=== PATIENT | female | born 1995 | race Caucasian/White ===

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

== ENCOUNTER 2017-05-15 21:11 | Emergency (ER) | payer OTHER, MEDICAID ==
--- NOTE | 2017-05-15 21:48 | Emergency Department Record ---
Anxiety - General Chief Complaint: Panic attack Stated Complaint: ANXIETY,SHAKES,HYPERVENTILATING Time Seen by Provider: 05/15/17 21:20 Source: Patient Mode of Arrival: Ambulatory Limitations: No limitations - History of Present Illness Initial Comments: 21 yo female presents to ED for evaluation of increased stress after missing a week of college last week. Patient reports that she missed class due to "the flu", emailed her professors, but she reports that they have not responded to her emails. Patient reports that she became stressed tonight after returning to college today resulting in a "panic attack". Patient reports that she has been having anxiety attacks weekly for some time but has not followed up with either her counselor or her PCP for further evaluation. Patient reports a history of anxiety and depression, was taking Prozac but stopped after 2 months. Patient denies SI/HI. Complaint: Anxiety Onset/Timin -: Hour(s) Place: Home Previous History of Same: Yes Severity: Moderate Quality: Constant Provoking factors: Emotional stress, Other Improves With: Nothing Worsens With: Thinking about event - Related Data Home Medications: Home Medications Medication Instructions Recorded Confirmed Last Taken No Home Med [NO HOME MEDS] 05/15/17 05/15/17 Unknown Allergies/Adverse Reactions: Allergies Allergy/AdvReac Type Severity Reaction Status Date / Time No Known Drug Allergies Allergy Unverified 12/14/15 09:37 Travel Screening - Travel/Exposure Within Last 30 Days Have you traveled within the last 30 days?: No - Travel Symptoms Symptom Screening: None Review of Systems Constitutional: Denies: Chills, Fever, Malaise, Night sweats Eyes: Denies: Eye discharge, Eye pain ENT: Denies: Congestion, Ear pain, Epistaxis Respiratory: Denies: Cough, Dyspnea Cardiovascular: Denies: Chest pain, Dyspnea on exertion Endocrine: Denies: Fatigue, Heat or cold intolerance Gastrointestinal: Denies: Abdominal pain, Nausea, Vomiting Genitourinary: Denies: Incontinence, Retention Musculoskeletal: Denies: Arthralgia, Back pain, Gout, Joint swelling Skin: Denies: Bruising, Change in color Neurological: Denies: Abnormal gait, Confusion, Headache, Seizure Psychiatric: Reports: Anxiety Hematological/Lymphatic: Denies: Anemia, Blood Clots Past Medical History - SOCIAL HISTORY Smoking Status: Never smoker Alcohol Use: Rare Drug Use: Rare Drug Use Detail:: Marijuana - RESPIRATORY Hx Respiratory Disorders: No - CARDIOVASCULAR Hx Cardio Disorders: No - NEURO Hx Neuro Disorders: No - GI Hx GI Disorders: No - Hx Genitourinary Disorders: No - ENDOCRINE Hx Endocrine Disorders: No - MUSCULOSKELETAL Hx Musculoskeletal Disorders: No - PSYCH Hx Psych Problems: Yes Hx Depression: Yes - HEMATOLOGY/ONCOLOGY Hx Hematology/Oncology Disorders: No Family Medical History Any Significant Family History?: Yes Hx Anxiety: Father, Mother *Anxiety Comment: Mom-bipolar Hx Depression: Father, Mother Physical Exam - General General Appearance: Alert, Oriented x3, Cooperative, No acute distress, Other ( flat affect, no evidence for anxiety reaction on examination.) Limitations: No limitations - Head Head exam: Atraumatic, Normocephalic, Normal inspection Head exam detail: negative: Abrasion, Contusion, Ibarra's sign, General tenderness, Hematoma, Laceration - Eye Eye exam: Normal appearance. negative: Conjunctival injection, Periorbital swelling, Periorbital tenderness, Scleral icterus - ENT Ear exam: negative: Auricular hematoma, Auricular trauma Nasal Exam: negative: Active bleeding, Discharge, Dried blood, Foreign body Mouth exam: negative: Drooling, Laceration, Tongue elevation - Neck Neck exam: Normal inspection. negative: Meningismus, Tenderness - Respiratory Respiratory exam: Normal lung sounds bilaterally. negative: Rales, Respiratory distress, Rhonchi, Stridor - Cardiovascular Cardiovascular Exam: Regular rate, Normal rhythm, Normal heart sounds - GI/Abdominal GI/Abdominal exam: Soft. negative: Rebound, Rigid, Tenderness - Rectal Rectal exam: Deferred - exam: Deferred - Extremities Extremities exam: Normal inspection. negative: Pedal edema, Tenderness - Back Back exam: Denies: CVA tenderness (R), CVA tenderness (L) - Neurological Neurological exam: Alert, Normal gait, Oriented X3 - Psychiatric Psychiatric exam: Flat affect - Skin Skin exam: Normal color. negative: Abrasion Type of lesion: negative: abrasion Course Vital Signs 05/15/17 21:18 Temperature 98.2 F Pulse Rate [ 97 H Pulse Ox Probe] Respiratory 28 H Rate Blood Pressure 109/64 [Left Arm] Pulse Ox 100 - Reevaluation(s) Reevaluation #1: 05/15/17 21:57 Patient was seen and examined, discussed treatment options including stress management and follow-up with her PCP for evaluation of her depression and anxiety symptoms including medication. Patient verbalizes understanding of all instructions. Reevaluation #2: 05/15/17 22:06 Patient reports that she is ready to go at this time. Reiterated the importance of follow-up for further evaluation of her anxiety and depression symptoms as well as OTC melatonin for her symptoms as needed. Mother reports that she is being "blown off". I reiterated that there is no short-term fix/ medication for her stress and anxiety symptoms, and that long-term medical management may be needed through a primary care provider or therapist. Patient and her mother eloped prior to receiving discharge instructions. Disposition Clinical Impression: Anxiety reaction Disposition: Against Medical Advice Condition: (2) Stable Instructions: Generalized Anxiety Disorder (ED) Additional Instructions: Return to ED if your symptoms worsen or if you have any concerns. Melatonin as directed. Follow-up with your family doctor in 3-5 days as directed. Forms: Patient Portal Access Time of Disposition: 22:06 Quality - Quality Measures Quality Measures: N/A - Blood Pressure Screening Does Patient Have Any of the Following: No Blood Pressure Classification: Normal BP Reading Systolic Measurement: 109 Diastolic Measurement: 64 Screening for High Blood Pressure: < Normal BP, F/U Not Required > [G8783]
== END 2017-05-15 22:12 | disposition left against medical advice (07) ==
LOC: ER 21:11
DX: F41.1 Generalized anxiety disorder (principal); F43.0 Acute stress reaction
CPT/HCPCS: 99282

== ENCOUNTER 2017-09-25 20:50 | Emergency (ER) | payer OTHER, MEDICAID ==
[2017-09-25] MEDS ORDERED: ONDANSETRON 4 MG ODT TABLET SL ONE (21:13)
[2017-09-25] MEDS ORDERED: IBUPROFEN 600 MG TABLET PO ONE (21:16)
[2017-09-25 21:43] LABS: URINE APPEARANCE CLEAR; URINE BILIRUBIN NEGATIVE (NEGATIVE); URINE BLOOD LARGE (NEGATIVE); URINE COLOR YELLOW; URINE GLUCOSE (UA) NEGATIVE (NEGATIVE); URINE KETONE NEGATIVE (NEGATIVE); URINE LEUKOCYTE ESTERASE NEGATIVE (NEGATIVE); URINE NITRITE NEGATIVE (NEGATIVE); URINE PROTEIN NEGATIVE (NEGATIVE); URINE UROBILINOGEN 0.2 E.U./dL (0.20 - 1.00)
[2017-09-25 21:44] LABS: HCG,QUALITATIVE URINE NEGATIVE (NEGATIVE); URINE BACTERIA NONE SEEN; URINE EPITHELIAL CELLS 0 - 2 (FEW); URINE WBC 0 - 2 (0-2/hpf)
--- NOTE | 2017-09-25 21:49 | Emergency Department Record ---
History of Present Illness - General Chief complaint: Pain Stated complaint: CRAMPS,DIARRHEA,NAUSEA Time Seen by Provider: 09/25/17 21:11 Source: Patient Mode of Arrival: Ambulatory Limitations: No limitations - History of Present Illness Initial comments: 22 yo female presents to ED for evaluation of pelvic cramping 5 days after having IUD placed with Dr. Garcia. Patient was told that she should expect 1- 2 days of cramping symptoms, was told to come to the ED if her symptoms persisted. Patient did not call her OB today regarding her symptoms however. Patient reports that she has been taking Tylenol for her symptoms without much improvement. Patient denies urinary symptoms, denies vaginal discharge symptoms. MD Complaint: Other (pelvic cramping) Onset/Timin -: Days(s) Location: Other History of Same: No Severity scale (1-10): 8 Quality: Other ("cramping") Consistency: Constant Improves with: Nothing Worsens with: Nothing Associated Symptoms: Denies other symptoms - Related Data Home Medications Medication Instructions Recorded Confirmed Last Taken Fluoxetine HCl [Prozac] 20 mg PO DAILY 09/25/17 09/25/17 Unknown Omeprazole [Prilosec] 20 mg PO DAILY 09/25/17 09/25/17 Unknown Previous Rx's Medication Instructions Recorded Ibuprofen 600 mg PO Q6H PRN #30 tablet 09/25/17 Allergies Allergy/AdvReac Type Severity Reaction Status Date / Time No Known Drug Allergies Allergy Unverified 12/14/15 09:37 Travel Screening - Travel/Exposure Within Last 30 Days Have you traveled within the last 30 days?: No Review of Systems Constitutional: Denies: Chills, Fever, Malaise, Night sweats Eyes: Denies: Eye discharge, Eye pain ENT: Denies: Congestion, Ear pain, Epistaxis Respiratory: Denies: Cough, Dyspnea Cardiovascular: Denies: Chest pain, Dyspnea on exertion Endocrine: Denies: Fatigue, Heat or cold intolerance Gastrointestinal: Reports: Abdominal pain. Denies: Nausea, Vomiting Genitourinary: Denies: Incontinence, Retention Musculoskeletal: Denies: Arthralgia, Back pain, Gout, Joint swelling Skin: Denies: Bruising, Change in color Neurological: Denies: Abnormal gait, Confusion, Headache, Seizure Psychiatric: Denies: Anxiety Hematological/Lymphatic: Denies: Anemia, Blood Clots Past Medical History - SOCIAL HISTORY Smoking Status: Never smoker Alcohol Use: None Drug Use: None - RESPIRATORY Hx Respiratory Disorders: No - CARDIOVASCULAR Hx Cardio Disorders: No - NEURO Hx Neuro Disorders: No - GI Hx GI Disorders: No - Hx Genitourinary Disorders: No - ENDOCRINE Hx Endocrine Disorders: No - MUSCULOSKELETAL Hx Musculoskeletal Disorders: No - PSYCH Hx Psych Problems: Yes Hx Depression: Yes - HEMATOLOGY/ONCOLOGY Hx Hematology/Oncology Disorders: No Family Medical History Any Significant Family History?: Yes Hx Anxiety: Father, Mother *Anxiety Comment: Mom-bipolar Hx Depression: Father, Mother Physical Exam - General General Appearance: Alert, Oriented x3, Cooperative, Mild distress Limitations: No limitations - Head Head exam: Atraumatic, Normocephalic, Normal inspection Head exam detail: negative: Abrasion, Contusion, Ibarra's sign, General tenderness, Hematoma, Laceration - Eye Eye exam: Normal appearance. negative: Conjunctival injection, Periorbital swelling, Periorbital tenderness, Scleral icterus - ENT Ear exam: negative: Auricular hematoma, Auricular trauma Nasal Exam: negative: Active bleeding, Discharge, Dried blood, Foreign body Mouth exam: negative: Drooling, Laceration, Muffled voice, Tongue elevation - Neck Neck exam: Normal inspection. negative: Meningismus, Tenderness - Respiratory Respiratory exam: Normal lung sounds bilaterally. negative: Rales, Respiratory distress, Rhonchi, Stridor - Cardiovascular Cardiovascular Exam: Regular rate, Normal rhythm, Normal heart sounds - GI/Abdominal GI/Abdominal exam: Soft, Tenderness, Other (Mild TTP pelvic region, no rebound, guarding, or peritoneal signs on exam). negative: Rebound, Rigid - Rectal Rectal exam: Deferred - exam: Other (IUD appears in satisfactory position, no bleeding present.). negative: cervical motion tenderness, Enlarged uterus, Vaginal discharge, Vaginal erythema - Extremities Extremities exam: Normal inspection. negative: Calf tenderness, Pedal edema, Tenderness - Back Back exam: Denies: CVA tenderness (R), CVA tenderness (L) - Neurological Neurological exam: Alert, Normal gait, Oriented X3 - Psychiatric Psychiatric exam: Normal affect, Normal mood - Skin Skin exam: Normal color. negative: Abrasion Type of lesion: negative: abrasion Course Vital Signs 09/25/17 20:58 Temperature 99.1 F Pulse Rate [ 75 Pulse Ox Probe] Respiratory 18 Rate Blood Pressure 125/69 [Left Arm] Pulse Ox 100 - Reevaluation(s) Reevaluation #1: 09/25/17 21:49 UA reviewed: 3-6 RBCs present Negative HCG No WBCs No bacteria Reevaluation #2: 09/25/17 21:55 Pelvic examination was performed, IUD appears to be in satisfactory position. Patient appears stable for discharge with instructions to take Ibuprofen as needed for cramping and to follow-up with Dr. Garcia in 3-5 days as directed for further evaluation. Medical Decision Making - Lab Data Lab Results 09/25/17 Range/Units 21:44 Urine Color Yellow Urine Appearance Clear Urine pH 6.0 (5.0-8.0) Ur Specific [place] >= 1.030 (1.002-1.030) Urine Protein Negative (NEGATIVE) Urine Glucose (UA) Negative (NEGATIVE) Urine Ketones Negative (NEGATIVE) Urine Blood Large H (NEGATIVE) Urine Nitrite Negative (NEGATIVE) Urine Bilirubin Negative (NEGATIVE) Urine Urobilinogen 0.2 (0.20 - 1.00) E.U./dL Ur Leukocyte Esterase Negative (NEGATIVE) Urine RBC 3 - 6 (NONE SEEN) Urine WBC 0 - 2 (0-2/hpf) Ur Epithelial Cells 0 - 2 (FEW) Urine Bacteria None seen Urine HCG, Qual Negative (NEGATIVE) Disposition Disposition: Discharge Clinical Impression: IUD complication Qualifiers: Device complication type: unspecified Encounter type: initial encounter Qualified Code(s): T83.9XXA - Unspecified complication of genitourinary prosthetic device, implant and graft, initial encounter Disposition: Home, Self-Care Condition: (2) Stable Instructions: Pelvic Pain in Women (ED) Additional Instructions: Return to ED if your symptoms worsen or if you have any concerns. Ibuprofen as directed. Follow-up with your Dr. Garcia in 3-5 days as directed. Prescriptions: Ibuprofen 600 mg PO Q6H PRN #30 tablet PRN Reason: Pain - Moderate (5-7) Forms: Patient Portal Access Time of Disposition: 21:57 Quality - Quality Measures Quality Measures: N/A - Blood Pressure Screening Does Patient Have Any of the Following: No Blood Pressure Classification: Pre-Hypertensive BP Reading Systolic Measurement: 125 Diastolic Measurement: 69 Screening for High Blood Pressure: < Pre-Hypertensive BP, F/U Documented > [ G8950] Pre-Hypertensive Follow-up Interventions: Referral to alternative/primary care provider.
== END 2017-09-25 22:03 | disposition home or self-care (01) ==
LOC: ER 20:50
DX: T83.84XA Pain due to genitourinary prosthetic devices, implants and grafts, initial encounter (principal); R10.2 Pelvic and perineal pain; Y76.2 Prosthetic and other implants, materials and accessory obstetric and gynecological devices associated with adverse incidents
CPT/HCPCS: 81001; 81025; 99284

== ENCOUNTER 2017-11-04 21:14 | Emergency (ER) | payer OTHER, MEDICAID ==
[2017-11-04 21:49] LABS: URINE APPEARANCE CLEAR; URINE BILIRUBIN NEGATIVE (NEGATIVE); URINE BLOOD MODERATE (NEGATIVE); URINE COLOR YELLOW; URINE GLUCOSE (UA) NEGATIVE (NEGATIVE); URINE KETONE NEGATIVE (NEGATIVE); URINE LEUKOCYTE ESTERASE NEGATIVE (NEGATIVE); URINE NITRITE NEGATIVE (NEGATIVE); URINE PROTEIN NEGATIVE (NEGATIVE); URINE UROBILINOGEN 0.2 E.U./dL (0.20 - 1.00)
[2017-11-04 22:01] LABS: HCG,QUALITATIVE URINE NEGATIVE (NEGATIVE); URINE BACTERIA FEW; URINE EPITHELIAL CELLS 0 - 2 (FEW); URINE WBC NONE SEEN (0-2/hpf)
[2017-11-04 22:04] LABS: BASO % 0.3 % (0-6); EOS % 2.4 % (0-6); GRAN % 62.2 % (47-80); HEMATOCRIT 40.2 % (35.0-47.0); HEMOGLOBIN 12.8 gm/dl (11.6-16.0); MEAN CELL VOLUME 90.1 fl (81-97); MEAN CORPUSCULAR HEMOGLOBIN 28.7 pg (27-33); MEAN CORPUSCULAR HGB CONC 31.8 g/dl (32-36); MEAN PLATELET VOLUME 9.8 fl (7.4-10.4); MONO % 7.1 % (0-9); PLATELET COUNT 331 K/uL (130-400); RED BLOOD COUNT 4.46 M/uL (3.80-5.40); RED CELL DISTRIBUTION WIDTH 13.9 % (11.5-14.5); WHITE BLOOD COUNT W/O DIFF 9.4 K/uL (4.2-12.2)
[2017-11-04 22:12] LABS: BLOOD UREA NITROGEN 13 mg/dL (6-20); CREATININE 0.8 mg/dL (0.5-0.9); EST GLOMERULAR FILTRATION RATE > 60 mL/min
[2017-11-04 22:13] LABS: TOTAL PROTEIN 6.7 g/dL (6.6-8.7)
[2017-11-04 22:15] LABS: GLUCOSE,RANDOM 94 mg/dL (74-109)
[2017-11-04 22:17] LABS: ALB/GLOB RATIO 1.5 (1.1-1.8); ALT/SGPT 35 U/L (<33); AST/SGOT 22 U/L (10.0-35.0)
[2017-11-04 22:18] LABS: ALKALINE PHOSPHATASE 97 U/L (35-104); LIPASE 28 U/L (13-60)
--- NOTE | 2017-11-04 22:20 | Emergency Department Record ---
History of Present Illness - General Chief Complaint: Abdominal Pain Stated Complaint: ABD PAIN, RT SIDE Time Seen by Provider: 11/04/17 21:52 Source: Patient Mode of Arrival: Ambulatory Limitations: No limitations - History of Present Illness Initial Comments: pt has ruq and rlq pain for 2hrs. it is cramp like. she had a normal bm an hour ago.non/v. she had surgery on her l wrist on 10/11 and has been taking norco Complaint: Abdominal pain Onset/Timin -: Hour(s) Location: RLQ Radiation: RUQ Migration to: RUQ Severity: Moderate Severity scale (1-10): 7 Quality: Sharp, Stabbing Consistency: Constant Improves With: Other Worsens With: Nothing Context: Other Associated Symptoms: Nausea - Related Data LMP (females 10-50): Unknown Patient : No (mirena iud) Home Medications Medication Instructions Recorded Confirmed Last Taken Hydrocodone/Acetaminophen [[place] 1 each PO DAILY 11/04/17 11/04/17 11/03/17 10-325 Tablet] Previous Rx's Medication Instructions Recorded Ibuprofen 600 mg PO Q6H PRN #30 tablet 09/25/17 Allergies Allergy/AdvReac Type Severity Reaction Status Date / Time No Known Drug Allergies Allergy Unverified 12/14/15 09:37 Travel Screening - Travel/Exposure Within Last 30 Days Have you traveled within the last 30 days?: No - Travel Symptoms Symptom Screening: None Review of Systems Reviewed: No additional complaints except as noted below Constitutional: Reports: As per HPI. Denies: Chills, Fever, Malaise, Night sweats, Weakness, Weight change Eyes: Reports: As per HPI. Denies: Eye discharge, Eye pain, Photophobia, Vision change ENT: Reports: As per HPI. Denies: Congestion, Dental pain, Ear pain, Epistaxis , Hearing loss, Throat pain Respiratory: Reports: As per HPI. Denies: Cough, Dyspnea, Hemoptysis, Stridor, Wheezes Cardiovascular: Reports: As per HPI. Denies: Arrhythmia, Chest pain, Dyspnea on exertion, Edema, Murmurs, Orthopnea, Palpitations, Paroxysmal nocturnal dyspnea, Rheumatic Fever, Syncope Endocrine: Reports: As per HPI. Denies: Fatigue, Heat or cold intolerance, Polydipsia, Polyuria Gastrointestinal: Reports: As per HPI, Abdominal pain. Denies: Constipation, Diarrhea, Hematemesis, Hematochezia, Melena, Nausea, Vomiting Genitourinary: Reports: As per HPI. Denies: Abnormal menses, Discharge, Dyspareunia, Dysuria, Frequency, Hematuria, Incontinence, Retention, Urgency Musculoskeletal: Reports: As per HPI. Denies: Arthralgia, Back pain, Gout, Joint swelling, Myalgia, Neck pain Skin: Reports: As per HPI. Denies: Bruising, Change in color, Change in hair/ nails, Lesions, Pruritus, Rash Neurological: Reports: As per HPI. Denies: Abnormal gait, Confusion, Headache, Numbness, Paresthesias, Seizure, Tingling, Tremors, Vertigo, Weakness Psychiatric: Reports: As per HPI. Denies: Anxiety, Auditory hallucinations, Depression, Homicidal thoughts, Suicidal thoughts, Visual hallucinations Hematological/Lymphatic: Reports: As per HPI. Denies: Anemia, Blood Clots, Easy bleeding, Easy bruising, Swollen glands Past Medical History - SOCIAL HISTORY Smoking Status: Current some day smoker Alcohol Use: Occasional Drug Use: Rare Drug Use Detail:: Marijuana - RESPIRATORY Hx Respiratory Disorders: No - CARDIOVASCULAR Hx Cardio Disorders: No - NEURO Hx Neuro Disorders: No - GI Hx GI Disorders: No - Hx Genitourinary Disorders: No - ENDOCRINE Hx Endocrine Disorders: No - MUSCULOSKELETAL Hx Musculoskeletal Disorders: No - PSYCH Hx Psych Problems: Yes Hx Anxiety: Yes Hx Depression: Yes - HEMATOLOGY/ONCOLOGY Hx Hematology/Oncology Disorders: No Family Medical History Any Significant Family History?: Yes Hx Anxiety: Father, Mother *Anxiety Comment: Mom-bipolar Hx Depression: Father, Mother Physical Exam - General General Appearance: Alert, Oriented x3, Cooperative, Mild distress - Head Head exam: Normal inspection - Eye Eye exam: Normal appearance, PERRL, EOMI Pupils: Normal accommodation - ENT ENT exam: Normal exam, Mucous membranes moist, Normal external ear exam, Normal orophraynx Ear exam: Normal external inspection. negative: External canal tenderness Nasal Exam: Normal inspection. negative: Discharge, Sinus tenderness Mouth exam: Normal external inspection, Tongue normal Teeth exam: Normal inspection. negative: Dental caries Throat exam: Normal inspection. negative: Tonsillar erythema, Tonsillar exudate - Neck Neck exam: Normal inspection, Full ROM. negative: Tenderness - Respiratory Respiratory exam: Normal lung sounds bilaterally. negative: Respiratory distress - Cardiovascular Cardiovascular Exam: Regular rate, Normal rhythm, Normal heart sounds - GI/Abdominal GI/Abdominal exam: Soft, Normal bowel sounds, Tenderness - Rectal Rectal exam: Deferred - exam: Deferred - Extremities Extremities exam: Normal inspection, Full ROM, Normal capillary refill. negative: Tenderness - Back Back exam: Reports: Normal inspection, Full ROM. Denies: Muscle spasm, Rash noted, Tenderness - Neurological Neurological exam: Alert, Normal gait, Oriented X3, Reflexes normal - Psychiatric Psychiatric exam: Normal affect, Normal mood - Skin Skin exam: Dry, Intact, Normal color, Warm Course Vital Signs 11/04/17 21:22 Temperature 98.7 F Pulse Rate [ 76 Pulse Ox Probe] Respiratory 16 Rate Blood Pressure 121/66 [Right Arm] Pulse Ox 99 Medical Decision Making - Lab Data Result diagrams: 11/04/17 21:45 11/04/17 21:45 Lab Results 11/04/17 11/04/17 Range/Units 21:30 21:45 WBC 9.4 (4.2-12.2) K/uL RBC 4.46 (3.80-5.40) M/uL Hgb 12.8 (11.6-16.0) gm/dl Hct 40.2 (35.0-47.0) % MCV 90.1 (81-97) fl MCH 28.7 (27-33) pg MCHC 31.8 L (32-36) g/dl RDW 13.9 (11.5-14.5) % Plt Count 331 (130-400) K/uL MPV 9.8 (7.4-10.4) fl Gran % 62.2 (47-80) % Lymphocytes % 28.0 (16-45) % Monocytes % 7.1 (0-9) % Eosinophils % 2.4 (0-6) % Basophils % 0.3 (0-6) % Urine Color Yellow Urine Appearance Clear Urine pH 6.5 (5.0-8.0) Ur Specific [place] 1.020 (1.002-1.030) Urine Protein Negative (NEGATIVE) Urine Glucose (UA) Negative (NEGATIVE) Urine Ketones Negative (NEGATIVE) Urine Blood Moderate (NEGATIVE) Urine Nitrite Negative (NEGATIVE) Urine Bilirubin Negative (NEGATIVE) Urine Urobilinogen 0.2 (0.20 - 1.00) E.U./dL Ur Leukocyte Esterase Negative (NEGATIVE) Urine RBC 10 - 15 (NONE SEEN) Urine WBC None seen (0-2/hpf) Ur Epithelial Cells 0 - 2 (FEW) Urine Bacteria Few Urine HCG, Qual Negative (NEGATIVE) Disposition Disposition: Discharge Clinical Impression: Abdominal pain Qualifiers: Abdominal location: right lower quadrant Qualified Code(s): R10.31 - Right lower quadrant pain Ovarian cyst Qualifiers: Laterality: right Qualified Code(s): N83.201 - Unspecified ovarian cyst, right side Cholelithiasis Qualifiers: Cholelithiasis location: gallbladder Cholecystitis presence: without cholecystitis Biliary obstruction: without biliary obstruction Qualified Code(s) : K80.20 - Calculus of gallbladder without cholecystitis without obstruction Hematuria Qualifiers: Hematuria type: asymptomatic microscopic Qualified Code(s): R31.21 - Asymptomatic microscopic hematuria Disposition: Home, Self-Care Condition: (1) Good Instructions: Gallstones (ED), Biliary Colic (ED), Ovarian Cyst (ED), Hematuria (ED) Additional Instructions: follow up with family doctor. return sooner if worse. have urine rechecked in a week Forms: Patient Portal Access Quality - Quality Measures Quality Measures: N/A - Blood Pressure Screening Does Patient Have Any of the Following: No Blood Pressure Classification: Normal BP Reading Systolic Measurement: 109 Diastolic Measurement: 50 Screening for High Blood Pressure: < Normal BP, F/U Not Required > [G8783]
[2017-11-04] MEDS ORDERED: KETOROLAC 30 MG/ML VIAL IVP ONE (23:12)
--- NOTE | 2017-11-05 12:59 | CT SCAN REPORT ---
EXAM: CT SCAN ABDOMEN/PELVIS WO CONTRAST HISTORY: RIGHT ABDOMINAL PAIN FOR 3-4 HOURS. TECHNIQUE: Helical CT examination of the abdomen and pelvis is performed without oral or intravenous contrast administration. Lack of oral and IV contrast utilization limits evaluation of the bowel and solid viscera, respectively. COMPARISON: Two views of the abdomen dated 06/27/2013. No prior CT examination available for comparison. FINDINGS: The lung bases are clear with the exception of a tiny subpleural calcified granuloma within the posterior left lung base, as seen on series 3, image #20. No pleural or pericardial effusion. The heart is not enlarged. The liver, spleen, pancreas, and adrenal glands are normal in appearance. The gallbladder is contracted. There is a possible tiny calcified gallstone. No gross gallbladder wall thickening or pericholecystic fluid. No biliary ductal dilatation. No intraabdominal nor retroperitoneal lymphadenopathy. The vasculature is normal in appearance. The kidneys are normal in size, position, and are smoothly marginated. No nephrolithiasis nor renal mass. The renal collecting systems are not dilated. No suspicious calcification is noted along the course of either ureter. No focal urinary bladder wall abnormality is seen. There are, however, a couple tiny collections of gas questioned in the nondependent urinary lumen. Has there been recent catheterization? An intrauterine contraceptive device is in place appearing satisfactory in position. The ovaries are not grossly enlarged. There are likely follicles within each ovary, with the largest on the right measuring up to 2 cm. No pelvic adenopathy nor free pelvic fluid. No gross bowel dilatation nor bowel wall thickening. The appendix is visualized and normal in appearance. There is a tiny fat-filled umbilical hernia appearing uncomplicated. No other ventral wall hernia. No lytic or blastic bone lesion. IMPRESSION: 1. NO NEPHROLITHIASIS NOR OBSTRUCTIVE UROPATHY. 2. BILATERAL OVARIAN FOLLICLES SUGGESTED, WITH THE LARGEST ON THE RIGHT MEASURING 2 CM IN DIAMETER. 3. NORMAL APPENDIX. 4. POSSIBLE TINY CALCIFIED GALLSTONE WITHOUT GALLBLADDER WALL THICKENING OR PERICHOLECYSTIC FLUID. 5. TINY COLLECTIONS OF GAS SUGGESTED IN THE NONDEPENDENT URINARY BLADDER LUMEN. HAS THERE BEEN RECENT CATHETERIZATION? THE URINARY BLADDER WALL DOES NOT APPEAR THICKENED. JOB NUMBER: [id number] MTDD
== END 2017-11-04 23:52 | disposition home or self-care (01) ==
LOC: ER 21:14
DX: K80.20 Calculus of gallbladder without cholecystitis without obstruction (principal); N83.201 Unspecified ovarian cyst, right side; R11.0 Nausea; R31.21 Asymptomatic microscopic hematuria; F17.210 Nicotine dependence, cigarettes, uncomplicated; Z98.890 Other specified postprocedural states
CPT/HCPCS: 99284 ×2; 96374; 83690; 85025; 80053; 81001; 81025; 74176; J1885

== ENCOUNTER 2018-08-08 17:00 | Emergency (ER) | payer OTHER, MEDICAID ==
--- NOTE | 2018-08-08 17:21 | Emergency Department Record ---
History of Present Illness - General Chief Complaint: Abdominal Pain Stated Complaint: ABDOMINAL PAIN Time Seen by Provider: 08/08/18 17:03 Source: Patient Mode of Arrival: Ambulatory Limitations: No limitations - History of Present Illness Initial Comments: The patient is here due to a 4 day hx of crampy diffuse AP with loose watery stools. She has had some nausea, but no vomiting, fever, or blood in the stool. She also denies any vaginal discharge, bleeding or pelvic cramping. The patient denies any Abx use and has had no recent travel. The patient has had no abdominal surgeries. MD Complaint: Abdominal pain Onset/Timin -: Days(s) Location: Diffuse Severity: Moderate Severity scale (1-10): 7 Quality: Cramping, Stabbing Consistency: Intermittent Improves With: Nothing Worsens With: Nothing Associated Symptoms: Diarrhea, Nausea - Related Data Patient : No Home Medications Medication Instructions Recorded Confirmed Last Taken Omeprazole [Prilosec] 20 mg PO DAILY 08/08/18 08/08/18 08/08/18 Previous Rx's Medication Instructions Recorded Ondansetron [Zofran Odt] 4 mg SL .Q4-6H PRN #12 tab.rapdis 08/08/18 Allergies Allergy/AdvReac Type Severity Reaction Status Date / Time No Known Drug Allergies Allergy Verified 08/08/18 18:32 Travel Screening - Travel/Exposure Within Last 30 Days Have you traveled within the last 30 days?: No - Travel/Exposure Within Last Year Have you traveled outside the [place] in the last year?: No - Additonal Travel Details Have you been exposed to anyone with a communicable illness?: No - Travel Symptoms Symptom Screening: None Review of Systems Constitutional: Denies: Chills, Fever Eyes: Denies: Eye discharge ENT: Denies: Congestion Respiratory: Denies: Cough, Dyspnea Past Medical History - SOCIAL HISTORY Smoking Status: Never smoker Alcohol Use: Occasional Drug Use: None - RESPIRATORY Hx Respiratory Disorders: No - CARDIOVASCULAR Hx Cardio Disorders: No - NEURO Hx Neuro Disorders: No - GI Hx GI Disorders: No - Hx Genitourinary Disorders: No - ENDOCRINE Hx Endocrine Disorders: No - MUSCULOSKELETAL Hx Musculoskeletal Disorders: No - PSYCH Hx Psych Problems: Yes Hx Anxiety: Yes Hx Depression: Yes - HEMATOLOGY/ONCOLOGY Hx Hematology/Oncology Disorders: No Family Medical History Any Significant Family History?: Yes Hx Anxiety: Father, Mother *Anxiety Comment: Mom-bipolar Hx Depression: Father, Mother Physical Exam - General General Appearance: Alert, Oriented x3, Cooperative, No acute distress - Head Head exam: Atraumatic, Normocephalic, Normal inspection - Eye Eye exam: Normal appearance, PERRL, EOMI - ENT Throat exam: Normal inspection. negative: Tonsillar erythema, Tonsillar exudate - Neck Neck exam: Normal inspection, Full ROM. negative: Tenderness - Respiratory Respiratory exam: Normal lung sounds bilaterally. negative: Respiratory distress - Cardiovascular Cardiovascular Exam: Regular rate, Normal rhythm, Normal heart sounds - GI/Abdominal GI/Abdominal exam: Soft, Normal bowel sounds, Tenderness (There is diffuse tenderness in all 4 quads but the abdomen is soft.). negative: Distended, Rebound, Rigid - Extremities Extremities exam: Normal inspection, Full ROM, Normal capillary refill. negative: Tenderness Course Vital Signs 08/08/18 17:08 Temperature 98.9 F Pulse Rate 90 Respiratory 20 Rate Blood Pressure 129/66 Pulse Ox 98 - Reevaluation(s) Reevaluation #1: The patient is doing a lot better at this time. Her crampy pain has resolved and she is resting comfortably with no nausea. I did discuss the normal lab work and the small amount of blood in the urine with the patient. She states she normally has some blood in the urine and that is chronic. On exam her abdomen is very soft and nontender in all 4 quads. The patient will be off work and drink fluids tonight and return to the ER in the AM for recheck. She has had no vomiting or diarrhea here in the ER. 08/08/18 18:15 Medical Decision Making - Data Complexity MDM Data: Labs Ordered and/or Reviewed - Lab Data Result diagrams: 08/08/18 17:40 08/08/18 17:40 Disposition Disposition: Discharge Clinical Impression: Diarrhea Qualifiers: Diarrhea type: unspecified type Qualified Code(s): R19.7 - Diarrhea, unspecified Disposition: Home, Self-Care Condition: (2) Stable Instructions: Acute Diarrhea (ED) Additional Instructions: Please drink plenty of fluids and slowly advance your diet tonight. Use the Zofran for nausea. Please return to the ER at 8am for recheck tomorrow. Return sooner for any return of the pain, fever, or vomiting. Prescriptions: Ondansetron [Zofran Odt] 4 mg SL .Q4-6H PRN #12 tab.rapdis PRN Reason: Nausea Forms: Patient Portal Access Time of Disposition: 18:18 Quality - Quality Measures Quality Measures: N/A - Blood Pressure Screening View Details: Yes Does Patient Have Any of the Following: No Blood Pressure Classification: Pre-Hypertensive BP Reading Systolic Measurement: 128 Diastolic Measurement: 71 Screening for High Blood Pressure: < Pre-Hypertensive BP, F/U Documented > [ G8950] Pre-Hypertensive Follow-up Interventions: Referral to alternative/primary care provider.
[2018-08-08] MEDS ORDERED: ONDANSETRON HCL IV 4 MG/2 ML VIAL IV ONE (17:23)
[2018-08-08] MEDS ORDERED: 0.9 % SODIUM CHLORIDE 1,000 ML BAG IV ONE (17:23)
[2018-08-08 17:50] LABS: BASO % 0.6 % (0-6); EOS % 1.1 % (0-6); GRAN % 77.2 % (47-80); HEMATOCRIT 42.4 % (35.0-47.0); HEMOGLOBIN 13.9 gm/dl (11.6-16.0); LYMPH % 15.3 % (16-45); MEAN CELL VOLUME 89.8 fl (81-97); MEAN CORPUSCULAR HEMOGLOBIN 29.4 pg (27-33); MEAN CORPUSCULAR HGB CONC 32.8 g/dl (32-36); MEAN PLATELET VOLUME 9.6 fl (7.4-10.4); MONO % 5.8 % (0-9); PLATELET COUNT 261 K/uL (130-400); RED BLOOD COUNT 4.72 M/uL (3.80-5.40); RED CELL DISTRIBUTION WIDTH 12.9 % (11.5-14.5); URINE APPEARANCE CLEAR; URINE BILIRUBIN NEGATIVE (NEGATIVE); URINE BLOOD MODERATE (NEGATIVE); URINE COLOR YELLOW; URINE GLUCOSE (UA) NEGATIVE (NEGATIVE); URINE KETONE NEGATIVE (NEGATIVE); URINE LEUKOCYTE ESTERASE NEGATIVE (NEGATIVE); URINE NITRITE NEGATIVE (NEGATIVE); URINE PROTEIN NEGATIVE (NEGATIVE); URINE UROBILINOGEN 0.2 E.U./dL (0.20 - 1.00); WHITE BLOOD COUNT W/O DIFF 5.3 K/uL (4.2-12.2)
[2018-08-08 18:00] LABS: BLOOD UREA NITROGEN 8 mg/dL (6-20); CREATININE 0.7 mg/dL (0.5-0.9); EST GLOMERULAR FILTRATION RATE > 60 mL/min; LIPASE 17 U/L (13-60); TOTAL PROTEIN 6.9 g/dL (6.6-8.7); URINE BACTERIA FEW; URINE RBC 16 - 25 (NONE SEEN); URINE SQUAMOUS EPITHELIAL CELL 0 - 2 /hpf; URINE WBC 0 - 2 (0-2/hpf)
[2018-08-08 18:02] LABS: GLUCOSE,RANDOM 133 mg/dL (74-109)
[2018-08-08] MEDS ORDERED: MAGNESIUM HYDROXIDE/AL HYDROX 30 ML, LIDOCAINE VISC 2% 15ML 15 ML PO ONE ×2 (18:02)
[2018-08-08 18:05] LABS: ALKALINE PHOSPHATASE 100 U/L (35-104); ALT/SGPT 18 U/L (<33); AST/SGOT 14 U/L (10.0-35.0); BILIRUBIN,DIRECT < 0.2 mg/dL (0-0.3)
[2018-08-08] MEDS ORDERED: POTASSIUM CHLORIDE 20 MEQ TABLET PO ONE (18:07)
== END 2018-08-08 19:05 | disposition home or self-care (01) ==
LOC: ER 17:00
DX: R19.7 Diarrhea, unspecified (principal); R11.0 Nausea; R31.29 Other microscopic hematuria; R10.84 Generalized abdominal pain
CPT/HCPCS: 99284 ×2; 96374; 96361; 83690; 85025; 80076; 80048; 81001; 84703; J2405; J7030

== ENCOUNTER 2018-08-09 07:30 | Emergency (ER) | payer OTHER, MEDICAID ==
--- NOTE | 2018-08-09 07:58 | Emergency Department Record ---
History of Present Illness - General Chief Complaint: Recheck - Other Stated Complaint: RECHECK Time Seen by Provider: 08/09/18 07:49 Source: Patient Mode of arrival: Ambulatory Limitations: No limitations - History of Present Illness Initial Comments: The patient is here for recheck due to 5 days of diffuse crampy AP with loose watery stools. She was here yesterday for the same issue and had normal lab work and did receive a liter of IVF and was discharged on Zofran. She states she is still having the crampy pain and loose stools but denies any vomiting or fever. The patient has had no abdominal surgeries. Complaint: Other Onset/Timin -: Days(s) Initial Visit For: Other Returns Today for: Other Symptoms Since Prior Visit: No new symptoms Associated Symptoms: Abdominal pain - Related Data Previous Rx's Medication Instructions Recorded Ondansetron [Zofran Odt] 4 mg SL .Q4-6H PRN #12 tab.rapdis 08/08/18 Allergies Allergy/AdvReac Type Severity Reaction Status Date / Time No Known Drug Allergies Allergy Verified 08/09/18 07:36 Travel Screening - Travel/Exposure Within Last 30 Days Have you traveled within the last 30 days?: No - Travel/Exposure Within Last Year Have you traveled outside the [place] in the last year?: No - Additonal Travel Details Have you been exposed to anyone with a communicable illness?: No - Travel Symptoms Symptom Screening: None Review of Systems Constitutional: Denies: Chills, Fever Eyes: Denies: Eye discharge ENT: Denies: Congestion Respiratory: Denies: Cough, Dyspnea Past Medical History - SOCIAL HISTORY Smoking Status: Never smoker Alcohol Use: Occasional Drug Use: None - RESPIRATORY Hx Respiratory Disorders: No - CARDIOVASCULAR Hx Cardio Disorders: No - NEURO Hx Neuro Disorders: No - GI Hx GI Disorders: No - Hx Genitourinary Disorders: No - ENDOCRINE Hx Endocrine Disorders: No - MUSCULOSKELETAL Hx Musculoskeletal Disorders: No - PSYCH Hx Psych Problems: Yes Hx Anxiety: Yes Hx Depression: Yes - HEMATOLOGY/ONCOLOGY Hx Hematology/Oncology Disorders: No Family Medical History Any Significant Family History?: Yes Hx Anxiety: Father, Mother *Anxiety Comment: Mom-bipolar Hx Depression: Father, Mother Physical Exam - General General Appearance: Alert, Oriented x3, Cooperative, No acute distress (The patient appears very calm and comfortable and nontoxic.) - Head Head exam: Atraumatic, Normocephalic - Eye Eye exam: Normal appearance, PERRL - Neck Neck exam: Normal inspection, Full ROM. negative: Tenderness - Respiratory Respiratory exam: Normal lung sounds bilaterally. negative: Respiratory distress - Cardiovascular Cardiovascular Exam: Regular rate, Normal rhythm, Normal heart sounds - GI/Abdominal GI/Abdominal exam: Soft (The abdomem is very soft in all 4 quads.), Normal bowel sounds, Tenderness (There is very mild diffuse tenderness in all 4 quads but clearly no guarding or rebound.), Other (The patient is up ambulating with no significant pain or discomfort.). negative: Guarding, Organomegaly, Pulsatile mass, Rebound, Rigid - Extremities Extremities exam: Normal inspection, Full ROM, Normal capillary refill. negative: Tenderness Course Vital Signs 08/09/18 07:39 Temperature 99 F Pulse Rate 95 H Respiratory 12 Rate Blood Pressure 103/83 Pulse Ox 94 L - Reevaluation(s) Reevaluation #1: The patient is doing well at this time. Her repeat temp is 98.5 and she presently denies any pain or discomfort. I did discuss the need to drink plenty of fluids and to use Tylenol for pain. On exam the patient's abdomen is very soft and nontender in all 4 quads. She is to see her PCP next week if not better and return to the ER for any pain, fever or vomiting. 08/09/18 08:47 Medical Decision Making - Lab Data Result diagrams: 08/09/18 07:55 08/09/18 07:55 Disposition Disposition: Discharge Clinical Impression: Diarrhea Qualifiers: Diarrhea type: unspecified type Qualified Code(s): R19.7 - Diarrhea, unspecified Disposition: Home, Self-Care Condition: (2) Stable Instructions: Acute Diarrhea (ED) Additional Instructions: Please use Tylenol for pain and take the Zofran if needed. Please see your family doctor for recheck next week if not better. Return to the ER for any pain , fever, or vomiting. Forms: Patient Portal Access Time of Disposition: 08:47 Quality - Quality Measures Quality Measures: N/A - Blood Pressure Screening View Details: Yes Does Patient Have Any of the Following: No Blood Pressure Classification: Pre-Hypertensive BP Reading Systolic Measurement: 103 Diastolic Measurement: 83 Screening for High Blood Pressure: < Pre-Hypertensive BP, F/U Documented > [ G8950] Pre-Hypertensive Follow-up Interventions: Referral to alternative/primary care provider.
[2018-08-09 08:02] LABS: BASO % 0.6 % (0-6); EOS % 1.2 % (0-6); HEMATOCRIT 40.4 % (35.0-47.0); HEMOGLOBIN 13.4 gm/dl (11.6-16.0); LYMPH % 13.9 % (16-45); MEAN CELL VOLUME 90.2 fl (81-97); MEAN CORPUSCULAR HEMOGLOBIN 29.9 pg (27-33); MEAN CORPUSCULAR HGB CONC 33.2 g/dl (32-36); MEAN PLATELET VOLUME 9.2 fl (7.4-10.4); MONO % 6.3 % (0-9); PLATELET COUNT 235 K/uL (130-400); RED BLOOD COUNT 4.48 M/uL (3.80-5.40); RED CELL DISTRIBUTION WIDTH 12.9 % (11.5-14.5); WHITE BLOOD COUNT W/O DIFF 6.6 K/uL (4.2-12.2)
[2018-08-09 08:15] LABS: BLOOD UREA NITROGEN 6 mg/dL (6-20)
[2018-08-09 08:16] LABS: CREATININE 0.8 mg/dL (0.5-0.9); EST GLOMERULAR FILTRATION RATE > 60 mL/min; TOTAL PROTEIN 6.6 g/dL (6.6-8.7)
[2018-08-09 08:18] LABS: GLUCOSE,RANDOM 103 mg/dL (74-109)
[2018-08-09 08:21] LABS: ALB/GLOB RATIO 1.3 (1.1-1.8); ALBUMIN 3.7 g/dL (4.0-5.0); ALKALINE PHOSPHATASE 97 U/L (35-104); ALT/SGPT 21 U/L (<33); AST/SGOT 18 U/L (10.0-35.0); C-REACTIVE PROTEIN 0.79 mg/dL (<0.5)
[2018-08-09 08:23] LABS: URINE APPEARANCE SL CLOUDY; URINE BILIRUBIN NEGATIVE (NEGATIVE); URINE BLOOD LARGE (NEGATIVE); URINE COLOR YELLOW; URINE GLUCOSE (UA) NEGATIVE (NEGATIVE); URINE KETONE NEGATIVE (NEGATIVE); URINE LEUKOCYTE ESTERASE NEGATIVE (NEGATIVE); URINE NITRITE NEGATIVE (NEGATIVE); URINE PROTEIN NEGATIVE (NEGATIVE); URINE UROBILINOGEN 0.2 E.U./dL (0.20 - 1.00)
[2018-08-09 08:36] LABS: URINE EPITHELIAL CELLS 0 - 2 (FEW); URINE WBC NONE SEEN (0-2/hpf)
[2018-08-09 08:37] LABS: URINE BACTERIA NONE SEEN
== END 2018-08-09 08:54 | disposition home or self-care (01) ==
LOC: ER 07:30
DX: R19.7 Diarrhea, unspecified (principal); R10.84 Generalized abdominal pain
CPT/HCPCS: 80053; 81001; 85025; 86140; 99283